=== PATIENT | male | born 2000 | race Caucasian/White ===

== ENCOUNTER 2023-03-10 08:57 | Emergency (ER) | payer OTHER ==
[~2023-03-10] VITALS: Ht 170.2 cm; Wt 66.7 kg
[2023-03-10 09:16] VITALS: BP 118/69; PULSE 74; RESP 20; TEMP 99; O2SAT 98
[2023-03-10 09:28] VITALS: O2SAT 98
[2023-03-10] MEDS ORDERED: methocarbamoL 500 MG TAB PO STA (09:59)
[2023-03-10] MEDS ORDERED: KETOROLAC 15 MG/ML VIAL IM ONE (10:00)
[2023-03-10] MEDS ORDERED: IBUP-2213 PO (11:07)
[2023-03-10 11:23] VITALS: BP 120/71; PULSE 74; RESP 20; TEMP 99; O2SAT 98
== END 2023-03-10 11:23 | disposition home or self-care (01) ==
LOC: MED 08:57
DX: S43.402A Unspecified sprain of left shoulder joint, initial encounter (principal); S99.921A Unspecified injury of right foot, initial encounter; Z79.899 Other long term (current) drug therapy; V89.2XXA Person injured in unspecified motor-vehicle accident, traffic, initial encounter; Y93.89 Activity, other specified; Y92.89 Other specified places as the place of occurrence of the external cause; Y99.8 Other external cause status
CPT/HCPCS: 71045; 73030; 73630; 96372; 99284; J1885

== ENCOUNTER 2023-03-18 11:55 | Emergency (ER) | payer OTHER ==
[~2023-03-18] VITALS: Ht 170.2 cm; Wt 66.7 kg
[~2023-03-18 11:55] MED LIST: IBUP-2213 PO
[2023-03-18 12:31] VITALS: BP 137/57; PULSE 60; RESP 16; TEMP 97.1; O2SAT 99
[2023-03-18 13:22] VITALS: BP 133/62; PULSE 60; RESP 16; TEMP 98; O2SAT 99
== END 2023-03-18 13:22 | disposition home or self-care (01) ==
LOC: MED 11:55
DX: Z02.89 Encounter for other administrative examinations (principal); Z79.899 Other long term (current) drug therapy; V89.2XXA Person injured in unspecified motor-vehicle accident, traffic, initial encounter; Y93.89 Activity, other specified; Y92.89 Other specified places as the place of occurrence of the external cause; Y99.8 Other external cause status
CPT/HCPCS: 99281